=== PATIENT | female | born 1950 | race Caucasian/White ===

== ENCOUNTER 2022-03-21 14:35 | Emergency (ER) | payer OTHER ==
[2022-03-21 14:50] VITALS: BMI 23.9
[2022-03-21] MEDS ORDERED: ACETAMINOPHEN 325 MG TABLET (FP) PO ONE (15:15)
[2022-03-21] MEDS ORDERED: ACETAMINOPHEN 325 MG TABLET (FP) ONE (15:34)
[2022-03-21 18:24] VITALS: BP 133/67; PULSE 73; RESP 20; TEMP 98.4
== END 2022-03-21 22:30 ==
LOC: JER 14:35
DX: M25.561 Pain in right knee (principal); W01.0XXA Fall on same level from slipping, tripping and stumbling without subsequent striking against object, initial encounter
CPT/HCPCS: 73564-TC-LT-FY; 73564-TC-RT-FY; 99284-25